=== PATIENT | male | born 1980 | race Two or more races ===

== ENCOUNTER 2020-01-17 16:45 | Emergency (ER) | payer MEDICAID ==
[~2020-01-17] VITALS: Ht 170.2 cm; Wt 79.4 kg
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
--- NOTE | 2020-01-17 17:55 | NUR ---
pt provided with a shoulder sling
--- NOTE | 2020-01-17 18:05 | NUR ---
Patient discharged to home in stable condition. Written and verbal after care instructions given. Patient verbalizes understanding of instruction.
[2020-01-17 18:06] VITALS: BP 120/76
== END 2020-01-17 18:06 | disposition home or self-care (01) ==
LOC: ER 16:54
DX: S43.492A Other sprain of left shoulder joint, initial encounter (principal); V49.59XA Passenger injured in collision with other motor vehicles in traffic accident, initial encounter; Y93.89 Activity, other specified; Y92.488 Other paved roadways as the place of occurrence of the external cause; Y99.8 Other external cause status
CPT/HCPCS: 73030-TC

== ENCOUNTER 2024-09-22 19:55 | Emergency (ER) | payer MEDICAID, OTHER ==
[~2024-09-22] VITALS: Ht 167.6 cm; Wt 81.6 kg
[2024-09-22] MEDS ORDERED: TDAP [DIPH/PERTUSSIS/TET] 0.5 ML VIAL IM ONE (20:32)
[2024-09-22] MEDS ORDERED: CEPH-570 PO (20:42)
[2024-09-22] MEDS: TDAP [DIPH/PERTUSSIS/TET] 0.5 ML VIAL IM ONE (20:52)
[2024-09-22 20:53] VITALS: BP 132/70; TEMP 98; O2SAT 98
== END 2024-09-22 20:54 | disposition home or self-care (01) ==
LOC: ER 19:58
DX: S61.336A Puncture wound without foreign body of right little finger with damage to nail, initial encounter (principal); X58.XXXA Exposure to other specified factors, initial encounter; Y93.9 Activity, unspecified; Y92.89 Other specified places as the place of occurrence of the external cause; Y99.8 Other external cause status
CPT/HCPCS: 90715